=== PATIENT | female | born 1970 | race Caucasian/White ===

== ENCOUNTER → 2023-08-30 08:06 | Outpatient (REF) | payer OTHER, SELFPAY ==
--- NOTE | 2023-08-30 08:11 | CA_ITS ---
Acquisition Time: 2023-08-30 08:23:11 Total Exercise Time: 00:08:17 Test Indications: CP, SOB Medications: SEE H Protocol: BRADEN Max HR: 173 BPM 103% of Pred: 167 BPM Max BP: 176/076 mmHG Max Work Load: 10.1 METS Exercise stress test with exercise 8 min 17 sec of Braden protocol, achieving 103% MPHR, with report of shortness of breath, mild nausea ( had not eaten breakfast), no chest discomfort, with occassional PVCs at baseline and in recovery, with normotensive and normal chronotropic response to exercise, without EKG changes meeting criteria for ischemia. Symptoms resolved in recovery. Test reviewed with Dr Plata Referred By: Christie Ireland Overread By: ALEJA MENA
== END ==
LOC: HO.CARD 08:06
PROVIDERS: PCP Family Medicine; Visit Provider Family Medicine
DX: R06.00 Dyspnea, unspecified (principal)
CPT/HCPCS: 93017

== ENCOUNTER → 2023-08-30 08:11 | Outpatient (BNV) | payer OTHER, SELFPAY | PROVIDERS: PCP Family Medicine; Visit Provider Nurse Practitioner Family | DX: R06.09 Other forms of dyspnea (principal) | CPT/HCPCS: 93016; 93018 ==